=== PATIENT | male | born 1955 | race Caucasian/White ===

== ENCOUNTER 2016-12-26 23:49 | Inpatient (IN) | payer OTHER ==
--- NOTE | 2016-12-27 00:05 | ER Document Report ---
ED General - General Stated Complaint: PASSED OUT Notes: Patient is a 61-year-old male who presents with complaint of a syncopal episode at long term. He just was admitted into long term yesterday. He denies drinking alcohol not daily basis. He denies any fevers. He denies being on any medications. He does smoke. He denies any drugs. He has noted points this time. He does not remember the episode. Report is that the patient was found face down in the hallway the long term. He had loss of urine incontinence. He is diaphoretic. When he woke up he was confused and violent. Patient does not remember any of the episode. He denies any pain or injuries from the syncopal episode. He denies any chest pain. Denies any shortness of breath. - Related Data Allergies/Adverse Reactions: No Known Allergies Allergy (Verified 02/03/13 08:55) Past Medical History - Social History Smoking Status: Current Every Day Smoker Frequency of alcohol use: None Drug Abuse: None Family History: Reviewed & Not Pertinent GI Medical History: Reports: Hx Hiatal Hernia - with surgery - Immunizations Hx Diphtheria, Pertussis, Tetanus Vaccination: No Review of Systems - Review of Systems Notes: My Normal Review Basic REVIEW OF SYSTEMS: CONSTITUTIONAL : Denies fever, chills, or sweats. Denies recent illness. EENT: Denies eye, ear, throat, or mouth pain or symptoms. Denies nasal or sinus congestion. CARDIOVASCULAR: Denies chest pain. RESPIRATORY: Denies cough, cold, or chest congestion. Denies shortness of breath, difficulty breathing, or wheezing. GASTROINTESTINAL: Denies abdominal pain. Denies nausea, vomiting, or diarrhea. Denies constipation. Last BM: GENITOURINARY: Denies difficulty urinating, painful urination, burning, frequency, or blood in urine.: MUSCULOSKELETAL: Denies neck or back pain or joint pain or swelling. SKIN: Denies rash or skin lesions. HEMATOLOGIC : Denies easy bruising or bleeding. LYMPHATIC: Denies swollen, enlarged glands. NEUROLOGICAL: Syncopal episode. Denies headache. Denies weakness or paralysis or loss of use of either side. Denies problems with gait or speech. Denies sensory or motor loss. ALL OTHER SYSTEMS REVIEWED AND NEGATIVE. Physical Exam - Notes Notes: General Appearance: Well nourished, alert, cooperative, no acute distress, no obvious discomfort. Well-appearing. Patient does have wetness on his pants from loss of urinary contents. Patient's hair is wet from where he was diaphoretic earlier. Vitals: reviewed, See vital signs table. Head: no swelling or tenderness to the head Eyes: PERRL, EOMI, Conjuctiva clear Mouth: No decreasd moisture Throat: No tonsillar inflammation, No airway obstruction, No lymphadenopathy Neck: Supple, no neck tenderness, No thyromegaly Lungs: No wheezing, No rales, No rhonci, No accessory muscle use, good air exchange bilaterally. Heart: Normal rate, Regular rythm, No murmur, no rub Abdomen: Normal BS, soft, No rigidity, No abdominal tenderness, No guarding, no rebound, no abdominal masses, no organomegaly Extremities: strength 5/5 in all extremities, good pulses in all extremities, no swelling or tenderness in the extremities, no edema. Skin: warm, dry, appropriate color, no rash Neuro: speech clear, oriented x 3, normal affect, responds appropriately to questions. Cranial nerves II through XII are intact. Distal sensation intact. Patient is able move all extremities without difficulty. No focal neurologic deficits on exam. Course - Re-evaluation Re-evalutation: 12/27/16 04:[address] scan did not show evidence of PE at this time. He did mention is suboptimal to see the very distal branches. Will give patient breathing treatments see if this will allow me to hear may be some wheezing. Still do not hear much wheezing on his auscultation. Still concerned of the fact that he had a syncopal episode and is requiring a significant amount of oxygen to keep his O2 saturation up. I will reevaluate him after he receives the breathing treatments. - Laboratory Result Diagrams: 12/27/16 00:50 12/27/16 00:50 Laboratory results interpreted by me: 12/27/16 12/27/16 12/27/16 00:50 00:50 00:50 RBC 5.74 H Hgb 18.4 H Hct 53.7 H RDW 14.1 H Seg Neutrophils % 88.8 H Lymphocytes % 5.9 L Carbonic Acid ABG pCO2 ABG HCO3 ABG Total CO2 Carboxyhemoglobin 4.4 H Chloride 92 L Glucose 177 H Total Protein 8.5 H 12/27/16 02:56 RBC Hgb Hct RDW Seg Neutrophils % Lymphocytes % Carbonic Acid 1.45 H ABG pCO2 48.2 H ABG HCO3 30.4 H ABG Total CO2 31.9 H Carboxyhemoglobin Chloride Glucose Total Protein - EKG Interpretation by Me Additional EKG results interpreted by me: 12/27/16 00:07 EKG is reviewed and interpreted by me. EKG shows normal sinus rhythm with rate of [address] segment elevation or depression. No ischemic T wave inversions. DC interval, QRS duration, QTC intervals are within normal range. No old EKG available for comparison. - Transfer of Care Notes: 12/27/16 05:22 The exact cause of the patient's syncope and hypoxemia is not 100% clear. He continues to be approximately 87% when taken off oxygen. He is a smoker. I do not hear much wheezing on exam to be convinced that this is purely COPD that is causing his hypoxemia. He is not having really any increased work of breathing even know he is significantly hypoxic without oxygen. I still treat him with Solu-Medrol and magnesium and breathing treatments. I did obtain a CTA taking this may be pulmonary embolism. Unfortunately the study was suboptimal and therefore they cannot rule out peripheral PEs. There is no obvious large PE or central PE. I did speak with the hospitalist at this time we will start him on Lovenox and they will do repeat studies later to help confirm whether or not there is a pulmonary embolism. I did speak with the patient and he is agreeable to this. He's had no recent bleeding. Dictation of this chart was performed using voice recognition software; therefore, there may be some unintended grammatical errors. Discharge - Discharge Clinical Impression: Hypoxemia Syncope Qualifiers: Syncope type: unspecified Qualified Code(s): R55 - Syncope and collapse Condition: Stable Disposition: ADMITTED INPATIENT Admitting Provider: Hospitalist Unit Admitted: Telemetry
[2016-12-27 01:16] LABS: ABSOLUTE LYMPHOCYTES (AUTO) 0.5 10^3/uL (0.5-4.7); ABSOLUTE MONOCYTES (AUTO) 0.5 10^3/uL (0.1-1.4); ABSOLUTE NEUT (AUTO) 8.1 10^3/uL (1.7-8.2); BASOPHILS % (AUTO) 0.4 % (0-2); HEMATOCRIT 53.7 % (37.9-51.0); HEMOGLOBIN 18.4 g/dL (13.5-17.0); HGB HCT DIFFERENCE 1.5; LYMPHOCYTES % (AUTO) 5.9 % (13-45); MEAN CORPUSCULAR HGB CONC 34.2 g/dL (32.0-36.0); MEAN CORPUSCULAR VOLUME 94 fl (80-97); MONOCYTES % (AUTO) 4.9 % (3-13); RED BLOOD COUNT 5.74 10^6/uL (4.35-5.55); RED CELL DISTRIBUTION WIDTH 14.1 % (11.5-14.0); SEGMENTED NEUTROPHILS % (AUTO) 88.8 % (42-78); WHITE BLOOD COUNT 9.2 10^3/uL (4.0-10.5)
[2016-12-27 01:40] LABS: ALANINE AMINOTRANSFERASE 28 U/L (21-72); ALBUMIN 4.8 g/dL (3.5-5.0); ALKALINE PHOSPHATASE 105 U/L (38-126); ASPARTATE AMINO TRANSFERASE 31 U/L (17-59); BILIRUBIN,DIRECT 0.4 mg/dL (0.0-0.4); BILIRUBIN,TOTAL 1.1 mg/dL (0.2-1.3); BLOOD UREA NITROGEN 15 mg/dL (7-20); CALCIUM 10.1 mg/dL (8.4-10.2); CHLORIDE 92 mmol/L (98-107); CREATINE KINASE 163 U/L (55-170); CREATININE RESULT 0.82 mg/dL (0.52-1.25); GLUCOSE 177 mg/dL (75-110); POTASSIUM 3.6 mmol/L (3.6-5.0); TOTAL PROTEIN 8.5 g/dL (6.3-8.2)
[2016-12-27 01:47] LABS: CREATINE KINASE MB 1.77 ng/mL (<4.55); TROPONIN I 0.013 ng/mL
[2016-12-27 01:48] LABS: ANION GAP 18 (5-19); CARBON DIOXIDE 29 mmol/L (22-30)
[2016-12-27] MEDS ORDERED: NORMAL SALINE 1000 ML 1,000 ML IV ONE ×2 (02:07→05:25)
[2016-12-27 03:07] LABS: ARTERIAL BLOOD BASE EXCESS 4.6 mmol/L
[2016-12-27] MEDS ORDERED: IPRATROPIUM/ALBUTEROL 0.5-2.5 MG/3 ML AMPUL NEB ONE (04:10)
[2016-12-27] MEDS: MAGNESIUM SULFATE/D5W 100 ML IV SCH ×2 (04:39→05:10)
[2016-12-27] MEDS ORDERED: METHYLPREDNISOLONE INJ 125 MG/2 ML SDV IV ONE (05:17)
[2016-12-27] MEDS ORDERED: ACETAMINOPHEN 325 MG TABLET PO PRN (05:22)
--- NOTE | 2016-12-27 06:27 | PDOC H&P ---
History of Present Illness Admission Date/PCP: 12/27/16 05:22 Patient complains of: Syncopal episode and shortness of breath History of Present Illness: BRAD OSBORN is a 61 year old male with a past medical history of tobacco dependence who has been incarcerated for 36 hours and had a spontaneous syncopal episode resulting in loss of consciousness and urinary incontinence upon awakening combative and short of breath. He is brought to the emergency room for evaluation and found to have mild hypoxia of 90% on 2 L. Concerned for pulmonary emboli prompted a CT angiogram of the chest which was a suboptimal study he has been treated empirically with Lovenox and referred to the hospitalist for admission. Patient denies previous episode no chest pain nausea vomiting or shortness of breath currently. Denies palpitations, tremor, vertigo, headache or alcohol withdrawal. He takes no medications Past Medical History Cardiac Medical History: Reports: None Pulmonary Medical History: Reports: Chronic Obstructive Pulmonary Disease (COPD) , Other - Chronic bronchitis EENT Medical History: Reports: None GI Medical History: Reports: Hiatal Hernia - with surgery Psychiatric Medical History: Reports: Tobacco Dependency Social History Information Source: Patient Lives with: Other - Incarcerated Smoking Status: Current Every Day Smoker Frequency of Alcohol Use: Occasional Drugs: Marijuana - Advance Directive Resuscitation Status: Full Code Family History Family History: COPD Parental Family History Reviewed: Yes Children Family History Reviewed: Yes Sibling(s) Family History Reviewed.: Yes Medication/Allergy Home Medications: No Home Medications 1 02/03/13 Amoxicillin/Potassium Clav [Augmentin 875-125 Tablet] 1 tab PO BID 02/04/13 Chlorhexidine Gluconate [Hibiclens Liquid] 120 ml TP 02/04/13 Mupirocin Calcium [Bactroban Nasal] 1 gm NS BID 02/04/13 Oxycodone HCl/Acetaminophen [Percocet 5-325 mg Tablet] 1 tab PO TID 02/04/13 Allergies/Adverse Reactions: No Known Allergies Allergy (Verified 02/03/13 08:55) Review of Systems Constitutional: ABSENT: chills, fever(s), headache(s), weight gain, weight loss Eyes: ABSENT: visual disturbances Ears: ABSENT: hearing changes Cardiovascular: ABSENT: chest pain, dyspnea on exertion, edema, orthropnea, palpitations Respiratory: ABSENT: cough, hemoptysis Gastrointestinal: ABSENT: abdominal pain, constipation, diarrhea, hematemesis, hematochezia, nausea, vomiting Genitourinary: ABSENT: dysuria, hematuria Musculoskeletal: ABSENT: joint swelling Integumentary: ABSENT: rash, wounds Neurological: ABSENT: abnormal gait, abnormal speech, confusion, dizziness, focal weakness, syncope Psychiatric: ABSENT: anxiety, depression, homidical ideation, suicidal ideation Endocrine: ABSENT: cold intolerance, heat intolerance, polydipsia, polyuria Hematologic/Lymphatic: ABSENT: easy bleeding, easy bruising Physical Exam Vital Signs: Intake & Output 12/25/16 12/26/16 12/27/16 11:59 11:59 11:59 Weight 100.5 kg General appearance: PRESENT: no acute distress, well-developed, well-nourished Head exam: PRESENT: atraumatic, normocephalic Eye exam: PRESENT: conjunctiva pink, EOMI, PERRLA. ABSENT: scleral icterus Ear exam: PRESENT: normal external ear exam Mouth exam: PRESENT: moist, tongue midline Neck exam: ABSENT: carotid bruit, JVD, lymphadenopathy, thyromegaly Respiratory exam: PRESENT: decreased breath sounds, prolonged expiratory phas, tachypnea. ABSENT: rales, rhonchi, wheezes Cardiovascular exam: PRESENT: RRR. ABSENT: diastolic murmur, rubs, systolic murmur Pulses: PRESENT: normal dorsalis pedis pul Vascular exam: PRESENT: normal capillary refill GI/Abdominal exam: PRESENT: normal bowel sounds, soft. ABSENT: distended, guarding, mass, organolmegaly, rebound, tenderness Rectal exam: PRESENT: deferred Extremities exam: PRESENT: full ROM. ABSENT: calf tenderness, clubbing, pedal edema Neurological exam: PRESENT: alert, awake, oriented to person, oriented to place , oriented to time, oriented to situation, CN II-XII grossly intact. ABSENT: motor sensory deficit Psychiatric exam: PRESENT: appropriate affect, normal mood. ABSENT: homicidal ideation, suicidal ideation Skin exam: PRESENT: dry, intact, warm. ABSENT: cyanosis, rash Results Impressions: Head CT 12/27/16 00:01 IMPRESSION: Left maxillary sinusitis with air-fluid level. CT appearance of the brain is unremarkable. Chest X-Ray 12/27/16 00:02 IMPRESSION: NO ACUTE RADIOGRAPHIC FINDING IN THE CHEST. Chest/Abdomen CTA 12/27/16 02:07 IMPRESSION: No acute cardiopulmonary findings. No gross evidence of pulmonary embolus; suboptimal pulmonary arterial was enhancement achieved limiting sensitivity/specificity. If clinical suspicion warrants, consider repeat or alternative investigation/surveillance (such as v/q scan and/or deep venous sonogram). Assessment & Plan - Diagnosis (1) Pulmonary emboli Is this a current diagnosis for this admission?: YesPlan: Given the patient's risks, history and lack of objective findings with suboptimal CTA he is treated empirically with full dose Lovenox with planned repeat CTA in 24 hours (2) COPD exacerbation Is this a current diagnosis for this admission?: YesPlan: Albuterol and Flonase (3) Chronic bronchitis Is this a current diagnosis for this admission?: YesPlan: Consideration of empiric antibiotics such as doxycycline and prednisone (4) Hypoxemia Is this a current diagnosis for this admission?: YesPlan: Supplemental oxygen secondary to the above (5) Syncope Qualifiers: Syncope type: unspecified Qualified Code(s): R55 - Syncope and collapse Is this a current diagnosis for this admission?: YesPlan: Likely secondary to pulmonary emboli however I will obtain orthostatic blood pressure and cardiac monitoring - Time Time Spent: 30 to 50 Minutes - Inpatient Certification Medical Necessity: Need Close Monitoring Due to Risk of Patient Decompensation
[2016-12-27 07:50] LABS: CREATINE KINASE MB 3.55 ng/mL (<4.55)
--- NOTE | 2016-12-27 07:58 | EKG REPORT ---
SEVERITY:- NORMAL ECG - SINUS RHYTHM : Confirmed by: Castro Brizuela MD 27-Dec-2016 07:57:27
[2016-12-27 08:03] LABS: TROPONIN I 0.084 ng/mL
[2016-12-27] MEDS: IPRATROPIUM/ALBUTEROL 0.5-2.5 MG/3 ML AMPUL NEB SCH ×2 (08:13→13:52)
[2016-12-27] MEDS ORDERED: ALBUTEROL SULFATE 0.083% NEB 2.5 MG/3 ML AMPUL NEB PRN (08:26)
[2016-12-27] MEDS ORDERED: NORMAL SALINE 1000 ML 1,000 ML IV PRN (08:33)
[2016-12-27] MEDS ORDERED: PREDNISONE 20 MG TABLET PO SCH (10:00)
[2016-12-27] MEDS ORDERED: ENOXAPARIN SODIUM INJ 100 MG/1 ML DISP.SYRIN SUBCUT SCH (10:00)
[2016-12-27] MEDS ORDERED: FLUTICASONE NASAL SPRAY 50 MCG/SPRY 120 SPRAY/16 GM NASL SCH (10:00)
[2016-12-27] MEDS ORDERED: CLARITHROMYCIN 500 MG TABLET PO SCH (10:00)
[2016-12-27] MEDS: PHOSPHORUS #1 250 MG TABLET PO SCH ×2 (10:37→16:42)
[2016-12-27 14:09] LABS: CREATINE KINASE MB 3.49 ng/mL (<4.55); TROPONIN I 0.07 ng/mL
[2016-12-27 17:26] VITALS: BP 120/73
--- NOTE | 2016-12-28 19:01 | PDOC DISCHARGE SUMMARY ---
General - Admit/Disc Date/PCP Admission Date/Primary Care Provider: 12/27/16 05:22 Discharge Date: 12/27/16 - Discharge Diagnosis (1) Syncope Is this a current diagnosis for this admission?: Yes (2) Maxillary sinusitis Is this a current diagnosis for this admission?: Yes (3) COPD exacerbation Is this a current diagnosis for this admission?: Yes (4) Hypoxemia Is this a current diagnosis for this admission?: Yes - Additional Information Resuscitation Status: Full Code Home Medications: No Home Medications 12/27/16 Additional Information: Patient signed out AGAINST MEDICAL ADVICE. History of Present Illness Patient complains of: Shortness of breath and syncope History of Present Illness: BRAD OSBORN is a 61 year old male, history of tobacco dependence has been incarcerated for 36 hours brought to the hospital because of episode of syncope with urinary incontinence reportedly upon waking up and becoming combative. Patient was hypoxic as well and short of breath and the patient was brought to the hospital and concern for pulmonary embolism was made of which a CT of the chest revealed suboptimal study but negative. Patient was then referred for admission. For details please refer to history and physical examination performed by the admitting physician. Hospital Course Hospital Course: The patient was admitted to observation. A repeat chest CT scan was ordered to rule out pulmonary emboli after 24 hours. Patient was anticoagulated. The patient apparently felt well and better, and is from the incarcerated by the police, and then the patient wanted to go home and eventually left and signed out AGAINST MEDICAL ADVICE. Physical Exam Vital Signs: Temp Pulse Resp BP Pulse Ox 97.3 F 78 21 H 120/73 90 L 12/27/16 06:00 12/27/16 13:52 12/27/16 16:30 12/27/16 16:30 12/27/16 15:31 Intake & Output 12/27/16 12/28/16 12/29/16 06:59 06:59 06:59 Weight 100.5 kg Exam: Patient signed out and his medical advice Results Laboratory Results: 12/27/16 12/27/16 12/27/16 07:05 07:05 13:31 Creatine Kinase 324 H 454 H CK-MB (CK-2) 3.55 Troponin I 0.084 12/27/16 13:31 Creatine Kinase CK-MB (CK-2) 3.49 Troponin I 0.070 Impressions: Head CT 12/27/16 00:01 IMPRESSION: Left maxillary sinusitis with air-fluid level. CT appearance of the brain is unremarkable. Chest X-Ray 12/27/16 00:02 IMPRESSION: NO ACUTE RADIOGRAPHIC FINDING IN THE CHEST. Chest/Abdomen CTA 12/27/16 02:07 IMPRESSION: No acute cardiopulmonary findings. No gross evidence of pulmonary embolus; suboptimal pulmonary arterial was enhancement achieved limiting sensitivity/specificity. If clinical suspicion warrants, consider repeat or alternative investigation/surveillance (such as v/q scan and/or deep venous sonogram). Qualifiers PATEINT BEING DISCHARGED WITH ANY OF THE FOLLOWING DIAGNOSIS?: No Plan Discharge Plan: Patient signed out AGAINST MEDICAL ADVICE.
== END 2016-12-27 17:39 | disposition left against medical advice (07) | DRG 312 ==
LOC: ER 23:49 → EH 12-27 05:22 → UNDOADMIN 12-27 06:05 → EH 12-27 06:05
PROVIDERS: ADMIT Internal Medicine; ATTEND Internal Medicine
PROC: 3E0F73Z Introduction of Anti-inflammatory into Respiratory Tract, Via Natural or Artificial Opening (ICD-10-PCS; principal; 2016-12-27)
DX: R55 Syncope and collapse (principal); J44.1 Chronic obstructive pulmonary disease with (acute) exacerbation; J32.0 Chronic maxillary sinusitis; R09.02 Hypoxemia; M19.90 Unspecified osteoarthritis, unspecified site; F17.210 Nicotine dependence, cigarettes, uncomplicated; Z83.6 Family history of other diseases of the respiratory system
CPT/HCPCS: 36415; 36600; 70450; 71010; 71275; 80053; 82375; 82550; 82553; 82803; 84100; 84484; 85025; 93005; 93010; 94640; 96365; 96375; 99285; J1650; J2930; J3475; J3490; J7030; J7512; J7620

== ENCOUNTER 2018-04-14 22:46 | Emergency (ER) | payer MEDICAID, OTHER ==
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
[2018-04-14] MEDS ORDERED: FENTANYL CITRATE INJ/PF 100 MCG/2 ML AMPUL ONE (23:30)
[2018-04-14 23:39] LABS: HEMATOCRIT 50.4 % (37.9-51.0); MEAN CORPUSCULAR HEMOGLOBIN 32.9 pg (27.0-33.4); MEAN CORPUSCULAR HGB CONC 33.7 g/dL (32.0-36.0); MEAN CORPUSCULAR VOLUME 98 fl (80-97); PLATELET COUNT 315 10^3/uL (150-450); RED BLOOD COUNT 5.17 10^6/uL (4.35-5.55); RED CELL DISTRIBUTION WIDTH 14.9 % (11.5-14.0); WHITE BLOOD COUNT 11.5 10^3/uL (4.0-10.5)
[2018-04-14 23:41] LABS: INTERNATIONAL RATION (INR) 0.92; PARTIAL THROMBOPLASTIN TIME 26.3 SEC (23.5-35.8); PROTHROMBIN TIME 12.8 SEC (11.4-15.4)
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
[2018-04-15 00:19] LABS: ABSOLUTE LYMPHOCYTES# (MANUAL) 5.5 10^3/uL (0.5-4.7); ABSOLUTE MONOCYTES # (MANUAL) 1.2 10^3/uL (0.1-1.4); ABSOLUTE NEUTROPHILS# (MANUAL) 4.8 10^3/uL (1.7-8.2); BASOPHILS % (MANUAL) 0 % (0-2); EOSINOPHILS % (MANUAL) 0 % (0-6); LYMPHOCYTES % (MANUAL) 48 % (13-45); MONOCYTES % (MANUAL) 10 % (3-13); SEGMENTED NEUTROPHILS % (MAN) 42 % (42-78); TOTAL CELLS COUNTED 100
[2018-04-15 00:20] LABS: ANISOCYTOSIS SLIGHT; PLATELET CLUMPS PRESENT; PLATELET COMMENT ADEQUATE; POLYCHROMASIA 1+
== END 2018-04-14 23:30 | disposition short-term general hospital (02) ==
LOC: ER 22:46
DX: S22.5XXA Flail chest, initial encounter for closed fracture (principal); S72.91XA Unspecified fracture of right femur, initial encounter for closed fracture; S21.211A Laceration without foreign body of right back wall of thorax without penetration into thoracic cavity, initial encounter; S00.33XA Contusion of nose, initial encounter; S30.1XXA Contusion of abdominal wall, initial encounter; M79.602 Pain in left arm; M79.651 Pain in right thigh; R07.81 Pleurodynia; V29.60XA Unspecified motorcycle rider injured in collision with unspecified motor vehicles in traffic accident, initial encounter; M21.922 Unspecified acquired deformity of left upper arm; J44.9 Chronic obstructive pulmonary disease, unspecified; R06.02 Shortness of breath; R09.02 Hypoxemia
CPT/HCPCS: 99285; 96374; 86900; 86901; 36415; 86850; 85025; 85610; 85730; 71045; 72020; L0172

== ENCOUNTER 2018-06-11 11:25 | Emergency (ER) | payer MEDICAID, OTHER ==
[2018-06-11] MEDS ORDERED: HYDROCODONE/ACETAMINOPHEN 5-325 MG TABLET PO ONE (11:49)
--- NOTE | 2018-06-11 11:54 | ER Document Report ---
ED Extremity Problem, Upper - General Chief Complaint: Arm Pain Stated Complaint: FALL ARM INJURY Time Seen by Provider: 06/11/18 11:42 Mode of Arrival: Ambulatory Notes: 62-year-old male presents emergency department with complaints of right elbow pain and right knee pain status post fall. Patient states that he was transitioning from the toilet to the wheelchair when he fell landing on his right elbow. Patient denies any head injury or loss of consciousness. Patient states that initially he did not have too much pain. The pain has been worsening over the last 2 days. Patient thinks that he fractured his elbow and knee. Patient is having associated numbness and tingling in his fourth and fifth fingers. I have greeted and performed a rapid initial assessment of this patient. A comprehensive ED assessment and evaluation of the patient, analysis of test results and completion of the medical decision making process will be conducted by additional ED providers. PHYSICAL EXAMINATION: GENERAL: Well-appearing, well-nourished and in no acute distress. HEAD: Atraumatic, normocephalic. EYES: Pupils equal round extraocular movements intact, conjunctiva are normal. ENT: Nares patent NECK: Normal range of motion LUNGS: No respiratory distress Musculoskeletal: Tenderness to palpation of the R elbow and R knee. 2+ radial pulse. 2+ DP/PT pulses. NEUROLOGICAL: Normal speech. 4th and 5th fingers numbness/tingling. PSYCH: Normal mood, normal affect. SKIN: Warm, Dry, normal turgor, no rashes or lesions noted. TRAVEL OUTSIDE OF THE [place] IN LAST 30 DAYS: No - Related Data Allergies/Adverse Reactions: No Known Allergies Allergy (Verified 06/11/18 11:29) Past Medical History - Social History Smoking Status: Former Smoker Family History: COPD Pulmonary Medical History: Reports: Hx COPD GI Medical History: Reports: Hx Hiatal Hernia - with surgery - Immunizations Hx Diphtheria, Pertussis, Tetanus Vaccination: No Physical Exam - Vital signs Vitals: Temp Pulse Resp BP Pulse Ox 98.0 F 87 18 132/81 H 93 06/11/18 11:39 06/11/18 11:39 06/11/18 11:39 06/11/18 11:39 06/11/18 11:39 Course - Vital Signs Vital signs: Temp Pulse Resp BP Pulse Ox 98.0 F 87 18 132/81 H 93 06/11/18 11:39 06/11/18 11:39 06/11/18 11:39 06/11/18 11:39 06/11/18 11:39
--- NOTE | 2018-06-11 12:44 | RADIOLOGY REPORT (SQ) ---
EXAM DESCRIPTION: ELBOW RIGHT AP/LAT COMPLETED DATE/TIME: 06/11/2018 12:28 pm REASON FOR STUDY: fall. trauma COMPARISON: None. NUMBER OF VIEWS: Four views. TECHNIQUE: AP, lateral, and both oblique radiographic images acquired of the right elbow. LIMITATIONS: None. FINDINGS: MINERALIZATION: Normal. BONES: Orthopedic bicondylar metallic plates with screws in the distal right humerus. Fracture and displacement of the proximal aspect of the metallic plate located in the medial distal humeral condyl e. Comminuted nondisplaced fracture of the distal humerus with mild callus formation. It is difficu lt to determine if an acute fracture is present. JOINT: No effusion. SOFT TISSUES:Soft tissue swelling. OTHER: No other significant finding. IMPRESSION: 1. Orthopedic hardware bicondylar distal humerus. Fracture and displacement of the prox imal aspect of the metallic plate, located in the medial distal humeral condyle. 2. Comminuted nondisplaced distal humerus fracture with callus formation identified, may represent he aling fracture. 3. Marked soft tissue swelling. Correlation suggested. TECHNICAL DOCUMENTATION: JOB ID: [id number] [employer]- All Rights Reserved Reading location - IP/workstation name: [email or web address]
--- NOTE | 2018-06-11 12:50 | RADIOLOGY REPORT (SQ) ---
EXAM DESCRIPTION: KNEE RIGHT 4 VIEWS COMPLETED DATE/TIME: 06/11/2018 12:28 pm REASON FOR STUDY: fall. trauma COMPARISON: No prior films are available. NUMBER OF VIEWS: Four views. TECHNIQUE: AP, lateral, and both oblique radiographic images acquired of the right knee. LIMITATIONS: None. FINDINGS: MINERALIZATION: Normal. BONES: The patient's prior examinations are not available at this reading. Orthopedic hardware with metallic plate and several screws visualized distal femur. Markedly comminuted fracture involving t he visualized mid distal femur. It is difficult to determine if an acute fracture(re-injury) is pres ent. No significant callus formation at the fracture site. Prior hardware tracts are identified in the proximal tibia. JOINT: No effusion. SOFT TISSUES: No soft tissue swelling. No radio-opaque foreign body. OTHER: No other significant finding. IMPRESSION: 1. The patient's prior examinations are not available at this reading. Orthopedic hard sim in the visualized mid-distal femur with markedly comminuted fracture. It is difficult to determ ine if acute fracture(re-injury) is present. No significant callus formation at the fracture site. TECHNICAL DOCUMENTATION: JOB ID: [id number] [employer]- All Rights Reserved Reading location - IP/workstation name: [email or web address]
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
[2018-06-11] MEDS ORDERED: FENTANYL CITRATE INJ/PF 100 MCG/2 ML AMPUL IV ONE (13:52)
[2018-06-11 15:37] LABS: HEMATOCRIT 39.5 % (37.9-51.0); HEMOGLOBIN 13.5 g/dL (13.5-17.0); MEAN CORPUSCULAR HEMOGLOBIN 30.8 pg (27.0-33.4); MEAN CORPUSCULAR HGB CONC 34.2 g/dL (32.0-36.0); MEAN CORPUSCULAR VOLUME 90 fl (80-97); PLATELET COUNT 510 10^3/uL (150-450); RED BLOOD COUNT 4.39 10^6/uL (4.35-5.55); RED CELL DISTRIBUTION WIDTH 15.2 % (11.5-14.0); WHITE BLOOD COUNT 10.1 10^3/uL (4.0-10.5)
[2018-06-11 15:59] LABS: ANION GAP 10 (5-19); BLOOD UREA NITROGEN 8 mg/dL (7-20); CARBON DIOXIDE 34 mmol/L (22-30); CHLORIDE 92 mmol/L (98-107); CREATINE KINASE 40 U/L (55-170); GLUCOSE 132 mg/dL (75-110); SODIUM 136.1 mmol/L (137-145)
[2018-06-11 16:02] LABS: POTASSIUM 2.9 mmol/L (3.6-5.0)
[2018-06-11] MEDS ORDERED: POTASSIUM CHLORIDE 10 MEQ CAPSULE.ER PO ONE ×2 (16:07→18:26)
[2018-06-11] MEDS ORDERED: NORMAL SALINE 1000 ML 1,000 ML IV ONE (16:07)
[2018-06-11] MEDS ORDERED: RINGERS SOLUTION,LACTATED 1,000 ML IV ONE (16:08)
[2018-06-11 16:12] LABS: ABSOLUTE MONOCYTES # (MANUAL) 0.4 10^3/uL (0.1-1.4); ABSOLUTE NEUTROPHILS# (MANUAL) 7.5 10^3/uL (1.7-8.2); ANISOCYTOSIS SLIGHT; BASOPHILS % (MANUAL) 0 % (0-2); EOSINOPHILS % (MANUAL) 2 % (0-6); LYMPHOCYTES % (MANUAL) 20 % (13-45); MONOCYTES % (MANUAL) 4 % (3-13); PLATELET COMMENT INCREASED; SEGMENTED NEUTROPHILS % (MAN) 74 % (42-78); TOTAL CELLS COUNTED 100
[2018-06-11] MEDS ORDERED: POTASSI CL 20 MEQ/50 ML RIDER 20 MEQ/50 ML RTUPB IV SCH (16:17)
--- NOTE | 2018-06-11 16:43 | RADIOLOGY REPORT (SQ) ---
EXAM DESCRIPTION: HIP RIGHT AP/LATERAL COMPLETED DATE/TIME: 06/11/2018 4:09 pm REASON FOR STUDY: fall, leg length discrepancy COMPARISON: None. NUMBER OF VIEWS: Two views. TECHNIQUE: AP pelvis and additional frog-leg view of the right hip. LIMITATIONS: None. FINDINGS: MINERALIZATION: Normal. RIGHT HIP: No fracture or dislocation. No worrisome bone lesions. LEFT HIP: No fracture or dislocation. No worrisome bone lesions. PUBIS AND ISCHIUM: There is some bony deformity of the superior and inferior pubic rami on the right presumably related to previous trauma. PELVIS: No fracture. SACRUM: No fracture or dislocation. No worrisome bone lesions. LOWER LUMBAR SPINE: No fracture or dislocation. No worrisome bone lesions. No significant disc disea se. SOFT TISSUES: No findings. OTHER: Orthopedic plate transfixed by orthopedic screws is identified extending inferiorly from the l evel of the proximal right femoral diaphysis. IMPRESSION: No acute changes. Other findings as noted above. TECHNICAL DOCUMENTATION: JOB ID: [id number] [employer]- All Rights Reserved Reading location - IP/workstation name: [email or web address]
[2018-06-11] MEDS ORDERED: HYDROCODONE/ACETAMINOPHEN 5-325 MG (6 TAB/ER DISP) PO PRN (17:01)
[2018-06-11 18:33] VITALS: BP 132/86
--- NOTE | 2018-06-12 13:05 | EKG REPORT ---
SEVERITY:- BORDERLINE ECG - SINUS RHYTHM BORDERLINE T ABNORMALITIES, ANT-LAT LEADS : Confirmed by: Castro Brizuela MD 12-Jun-2018 13:05:07
== END 2018-06-11 18:34 | disposition home or self-care (01) ==
LOC: ER 11:25
PROC: 2W38X1Z Immobilization of Right Upper Extremity using Splint (ICD-10-PCS; principal; 2018-06-11)
DX: T84.120A Displacement of internal fixation device of right humerus, initial encounter (principal); W18.11XA Fall from or off toilet without subsequent striking against object, initial encounter; E87.6 Hypokalemia; S72.91XS Unspecified fracture of right femur, sequela; S42.401S Unspecified fracture of lower end of right humerus, sequela; V29.60XS Unspecified motorcycle rider injured in collision with unspecified motor vehicles in traffic accident, sequela; M21.332 Wrist drop, left wrist; R53.1 Weakness; R45.1 Restlessness and agitation; Z60.2 Problems related to living alone; Z87.891 Personal history of nicotine dependence
CPT/HCPCS: 29105; 93005; 99285; 96374; 36415; 82550; 83735; 85025; 80048; 73070; 73502; 73564; 93010; L1830; J3010; J7120